=== PATIENT | male | born 1975 | race African-American/Black ===

== ENCOUNTER 2018-07-03 05:07 | Day surgery (SDC) | payer OTHER ==
[2018-07-02 08:37] VITALS: BMI 29.1
[2018-07-03] MEDS ORDERED: LIDOCAINE HCL/PF 1% SDV 5ML VIAL ONE ×2 (07:19→07:22)
[2018-07-03] MEDS ORDERED: methylPREDNISolone ACET (DEPO) 80 MG/1 ML VIAL ONE (07:19)
[2018-07-03] MEDS ORDERED: BUPIVACAINE HCL/PF 0.25% (2.5MG/ML) 10 ML VIAL ONE (07:20)
[2018-07-03] MEDS ORDERED: PROPOFOL 20 ML ONE (08:38)
[2018-07-03] MEDS ORDERED: LIDOCAINE HCL 0.5%, 5 MG/1 ML (50mL MDV) NR ONE (08:40)
[2018-07-03] MEDS ORDERED: methylPREDNISolone ACET (DEPO) 80 MG/1 ML VIAL IM ONE (08:40)
--- NOTE | 2018-07-03 10:10 | OP ---
DATE OF OPERATION: 07/03/2018 PREOPERATIVE DIAGNOSIS: L4-L5 herniated disc with lower back pain and left lower extremity radiculopathy. POSTOPERATIVE DIAGNOSIS: L4-L5 herniated disc with lower back pain and left lower extremity radiculopathy. ATTENDING SURGEON: Pierce Melgar MD PROCEDURE: 1. Left L4-L5 epidural steroid injection. 2. Intraoperative fluoroscopy. ANESTHESIA: Local with IV sedation. ANESTHESIOLOGIST: Magdalena Melendrez MD INDICATIONS: The patient is a 42-year-old male who sustained back injury and complains of lower back pain and lumbar radiculopathy. Because of intractable symptoms and failure of conservative treatment, he is here for the first epidural steroid injection. The risks of procedure include, but are not limited to, bleeding, infection, spinal headache, and neurological injury. The patient understands the indications for procedure, the procedure in detail, risks and benefits, and alternative treatments to his lumbar condition, and wished to proceed. No guarantees were given for a favorable outcome. PROCEDURE IN DETAIL: After the patient was taken to the operating room, he was placed in the prone position with a pillow under his hips. Lumbar region was cleaned with alcohol and prepped with Betadine. A skin wheal was raised with 5 mL of 1% Xylocaine. A 22-gauge spinal needle was inserted under AP and lateral fluoroscopic guidance from a left-sided approach to L4-L5 through interlaminar approach. Loss of resistance technique was utilized, and the center of spinal canal was accessed. There was no CSF or blood backflow. Depo-Medrol 80 mg and 1 mL of 0.25% Marcaine were injected. The needle was withdrawn and sterile bandage was applied. The patient tolerated the procedure well. He was turned back to the supine position, moving bilateral lower extremities well. He did not complain of a headache. PIERCE MELGAR M.D. [id number]
[2018-07-03 12:32] VITALS: BP 130/70; PULSE 70; TEMP 98
== END 2018-07-03 10:45 | disposition home or self-care (01) ==
LOC: JASU-SURG 05:07
PROVIDERS: ATTEND Neurological Surgery
PROC: 3E0R33Z Introduction of Anti-inflammatory into Spinal Canal, Percutaneous Approach (ICD-10-PCS; 2018-07-03)
PROC: B01BZZZ Fluoroscopy of Spinal Cord (ICD-10-PCS; 2018-07-03)
PROC: 3E0R3BZ Introduction of Anesthetic Agent into Spinal Canal, Percutaneous Approach (ICD-10-PCS; principal; 2018-07-03 09:00)
DX: M51.16 Intervertebral disc disorders with radiculopathy, lumbar region (principal)
CPT/HCPCS: 76000-TC-FY